=== PATIENT | female | born 1945 | race Caucasian/White ===

== ENCOUNTER 2019-04-11 10:17 | Emergency (ER) | payer MEDICARE, OTHER, MEDICAID ==
[~2019-04-11] VITALS: Ht 170.2 cm; Wt 138.6 kg
[~2019-04-11 10:17] MED LIST: DOCU100C40 PO; LEVO150T8 PO; MORP-92 PO; OLAN5TAB26 PO; VENL37.55 PO
[2019-04-11 10:25] VITALS: BP 129/67
[2019-04-11] MEDS ORDERED: HYDR-4353 PO (11:43)
== END 2019-04-11 11:57 | disposition home or self-care (01) ==
LOC: ER 10:18
DX: S81.811A Laceration without foreign body, right lower leg, initial encounter (principal); M53.3 Sacrococcygeal disorders, not elsewhere classified; M54.5 Low back pain; E11.9 Type 2 diabetes mellitus without complications; G89.29 Other chronic pain; Z79.899 Other long term (current) drug therapy; Z98.890 Other specified postprocedural states; Z86.73 Personal history of transient ischemic attack (TIA), and cerebral infarction without residual deficits; W01.0XXA Fall on same level from slipping, tripping and stumbling without subsequent striking against object, initial encounter; Y93.89 Activity, other specified; Y92.89 Other specified places as the place of occurrence of the external cause; Y99.8 Other external cause status
CPT/HCPCS: 72100; 99283

== ENCOUNTER 2019-04-15 18:54 | Emergency (ER) | payer MEDICARE, OTHER, MEDICAID ==
[~2019-04-15] VITALS: Ht 170.2 cm; Wt 107.8 kg
[~2019-04-15 18:54] MED LIST changes: +HYDR-4353 PO
[2019-04-15] MEDS ORDERED: ondansetron 4mg rapidly disintigrating tab PO ONE (20:35)
[2019-04-15] MEDS ORDERED: HYDROcodone/acetaminophen 5mg/325mg tablet PO ONE (20:35)
[2019-04-15] MEDS ORDERED: HYDR-4383 PO (21:27)
[2019-04-15 21:34] VITALS: BP 133/70
== END 2019-04-15 21:35 | disposition home or self-care (01) ==
LOC: ER 18:55
DX: R07.81 Pleurodynia (principal); E11.9 Type 2 diabetes mellitus without complications; G89.29 Other chronic pain; Z86.73 Personal history of transient ischemic attack (TIA), and cerebral infarction without residual deficits; Z98.890 Other specified postprocedural states; Z79.899 Other long term (current) drug therapy; W18.30XA Fall on same level, unspecified, initial encounter; Y93.89 Activity, other specified; Y92.89 Other specified places as the place of occurrence of the external cause; Y99.9 Unspecified external cause status
CPT/HCPCS: 71046; 99283

== ENCOUNTER 2019-09-02 14:04 | Observation (INO) | payer MEDICARE, OTHER, MEDICAID ==
[~2019-09-02] VITALS: Ht 170.2 cm; Wt 131.8 kg
[~2019-09-02 14:04] MED LIST changes: -HYDR-4353 PO; +HYDR-4383 PO
--- NOTE | 2019-09-02 14:19 | NUR ---
To CT via [facility].
[2019-09-02 14:49] LABS: BASOPHILS % (AUTO) 0.7 % (0-1); EOSINOPHILS # (AUTO) 0.2 X10'3 (0-0.9); EOSINOPHILS % (AUTO) 4.4 % (0-6); HEMATOCRIT 37.1 % (35.0-45.0); HEMOGLOBIN 12.3 g/dl (12.0-16.0); LYMPHOCYTES # (AUTO) 1.2 X10'3 (1.1-4.8); LYMPHOCYTES % (AUTO) 22.2 % (21-51); MEAN CORPUSCULAR HEMOGLOBIN 32.1 PG (27.0-31.0); MEAN CORPUSCULAR HGB CONC 33.3 g/dL (33.0-36.5); MEAN CORPUSCULAR VOLUME 96.6 FL (78-98); MEAN PLATELET VOLUME 9.1 FL (7.4-10.4); MONOCYTES # (AUTO) 0.8 X10'3 (0-0.9); MONOCYTES % (AUTO) 14.4 % (2-12); NEUTROPHILS # (AUTO) 3.1 X10'3 (1.8-7.7); NEUTROPHILS % (AUTO) 58.3 % (42-75); PLATELET COUNT 120 X10'3 (140-440); RED BLOOD COUNT 3.84 X10'6 (4.20-5.60); RED CELL DISTRIBUTION WIDTH 16.4 % (11.5-14.5); WHITE BLOOD COUNT 5.3 X10'3 (4.5-11.0)
--- NOTE | 2019-09-02 14:55 | NUR ---
STROKE CODE CANCELLED PER DR. BHARDWAJ.
[2019-09-02 15:01] LABS: PARTIAL THROMBOPLASTIN TIME 27 SECONDS (22-32)
[2019-09-02 15:04] LABS: ALANINE AMINOTRANSFERASE 42 U/L (12-78); ALBUMIN 3.4 G/DL (3.4-5.0); ALBUMIN/GLOBULIN RATIO 1.2 (1.1-1.5); ALKALINE PHOSPHATASE 198 IU/L (46-116); ANION GAP 7 (8-16); ASPARTATE AMINO TRANSFERASE 65 U/L (10-37); BILIRUBIN,TOTAL 1.2 MG/DL (0.1-1.0); BLOOD UREA NITROGEN 14 MG/DL (7-18); BUN/CREATININE RATIO 17.9 (6.6-38.0); CALCIUM 9.6 MG/DL (8.5-10.1); CHLORIDE 110 MMOL/L (99-107); CREATININE 0.78 MG/DL (0.40-0.90); GLUCOSE 200 MG/DL (70-104); POTASSIUM 3.3 MMOL/L (3.5-5.1); SODIUM 144 MMOL/L (135-145); TOTAL CARBON DIOXIDE 26.7 MMOL/L (24-32); TOTAL PROTEIN 6.2 G/DL (6.4-8.2); eGFR 73 ML/MIN
[2019-09-02] MEDS ORDERED: lactulose 20gm/30ml cup PO ONE (15:10)
[2019-09-02 15:28] LABS: CLARITY,URINE CLOUDY (Clear); GLUCOSE, URINE NEGATIVE (Neg); KETONES,URINE NEGATIVE (Neg); LEUKOCYTE ESTERASE ,URINE SMALL (Neg); NITRITES, URINE NEGATIVE (Neg); OCCULT BLOOD,URINE LARGE (Neg); PH,URINE 5.5 (4.8-8.0); PROTEIN,URINE 100 mg/dl (Neg)
[2019-09-02 15:29] LABS: COLOR,URINE DARK YELLOW (Yellow); UA COLLECTION TYPE CLN CATCH MIDSTREAM
[2019-09-02 15:37] LABS: BACTERIA,URINE 1+ /HPF (Neg); MUCUS STRANDS NONE SEEN /LPF (Neg); RBC,URINE TNTC /HPF (0-2); SQUAMOUS EPITHELIAL CELL,UR MODERATE /LPF (FEW)
[2019-09-02] MEDS ORDERED: CefTRIAXone/D5W-Rocephin 1gm 50 ML IV ONE (15:40)
[2019-09-02 15:42] LABS: URINE AMPHETAMINE SCREEN NEGATIVE (Neg); URINE BARBITUATE SCREEN NEGATIVE (Neg); URINE BENZODIAZEPINES SCREEN NEGATIVE (Neg); URINE CANNABINOID SCREEN POSITIVE (Neg); URINE COCAINE SCREEN NEGATIVE (Neg); URINE METHADONE SCREEN NEGATIVE (Neg); URINE OPIATE SCREEN POSITIVE (Neg); URINE PHENCYCLIDINE SCREEN NEGATIVE (Neg)
[2019-09-02] MEDS ORDERED: OXYB-58 PO (15:59)
[2019-09-02] MEDS ORDERED: PREVCR TD (15:59)
[2019-09-02] MEDS ORDERED: METF-950 PO (15:59)
[2019-09-02] MEDS ORDERED: vitamin d PO (16:00)
[2019-09-02] MEDS ORDERED: HYDROcodone/acetaminophen 5mg/325mg tablet PO PRN (16:25)
[2019-09-02] MEDS ORDERED: potassium Cl 20 mEq SR tablet PO PRN (16:25)
[2019-09-02] MEDS ORDERED: magnesium 2GM in 50ml NS 50 ML IV PRN (16:25)
[2019-09-02] MEDS ORDERED: morphine 2 MG/ML inj. syringe IV PRN (16:25)
[2019-09-02] MEDS ORDERED: magnesium 4gm in 100ml NS 100 ML IV PRN (16:25)
[2019-09-02] MEDS ORDERED: ondansetron/PF 4mg/2ml inj IV PRN (16:25)
[2019-09-02] MEDS ORDERED: magnesium Cl slow-release 64mg tablet PO PRN (16:25)
[2019-09-02] MEDS ORDERED: mag hydrox/Alum hydrox/simeth 30ml oral suspension PO PRN (16:25)
[2019-09-02] MEDS ORDERED: acetaminophen 325mg tablet PO PRN ×2 (16:25)
[2019-09-02] MEDS ORDERED: potassium CL 10mEq/100ml bag 100 ML IV PRN ×2 (16:25)
[2019-09-02] MEDS ORDERED: dextrose ORAL solution 15 GM/59 ML bottle PO PRN ×2 (16:35)
[2019-09-02] MEDS ORDERED: MESSAGE TO PHARMACY PO ONE (16:35)
[2019-09-02] MEDS ORDERED: insulin Lispro (HumaLOG) vial - multi-dose SQ SCH (16:35)
[2019-09-02] MEDS ORDERED: glucagon, human recombinant 1mg kit SUBCUT PRN (16:35)
[2019-09-02] MEDS ORDERED: dextrose 50%-water 50ml dispensing syringe IV PRN ×2 (16:35)
[2019-09-02] MEDS ORDERED: estrogens, conjug. vaginal cream 45gm tube VG SCH (16:35)
--- NOTE | 2019-09-02 17:36 | NUR ---
Attempted report to receiving nurse x 1. Surgical retail sales clerk reports RN will call back.
--- NOTE | 2019-09-02 17:45 | NUR ---
Report received from ED RNQuin.
[2019-09-02 18:00] VITALS: BP 107/43
--- NOTE | 2019-09-02 18:00 | NUR ---
Pt arrived from ED
--- NOTE | 2019-09-02 18:50 | NUR ---
Problems reprioritized. Patient report given, questions answered & plan of care reviewed with FRED Langston.
[2019-09-02] MEDS: normal saline 1000ml 1,000 ML IV SCH (19:23)
[2019-09-02] MEDS: nystatin 15 GM powder TP SCH (19:26)
[2019-09-02] MEDS: heparin, porcine 5000 units/ml vial SQ SCH (19:27)
[2019-09-02] MEDS: potassium Cl 20 mEq SR tablet PO PRN (19:27)
[2019-09-02] MEDS: docusate sod 100mg capsule PO SCH (19:27)
[2019-09-02] MEDS ORDERED: pneumococcal 23-VAL P-sac vacc 25 mcg/0.5ml vial IMVAC ONE (19:30)
[2019-09-02] MEDS: K and/or MAG REPLACEMENT MC SCH (19:38)
[2019-09-02 20:00] VITALS: BP_SYST 107; BP_SYST 138; BP_SYST 142; BP_DIAS 43; BP_DIAS 70; BP_DIAS 72
--- NOTE | 2019-09-02 20:00 | NUR ---
PATIENT REFUSED Addendum: 09/02/19 at 2324 by Ivis Browning RN Amended: Links added.
[2019-09-02] MEDS ORDERED: temazepam 15mg capsule PO PRN (21:00)
[2019-09-02] MEDS ORDERED: diatr meglu/diatrizoate 30ml oral sol.-(3 dose) bottle PO ONE (21:00)
[2019-09-02] MEDS ORDERED: insulin glargine (Lantus) pen - multi-dose SQ SCH (21:00)
--- NOTE | 2019-09-02 22:37 | NUR ---
PATIENT REFUSED TO DO ORTHOSTATICS Addendum: 09/02/19 at 2238 by Ivis Browning RN Amended: Links added.
--- NOTE | 2019-09-02 22:39 | NUR ---
VITALS DONE ON DAY SHIFT Addendum: 09/02/19 at 2239 by Ivis Browning RN Amended: Links added.
--- NOTE | 2019-09-02 23:22 | NUR ---
PATIENT REFUSED TO DO ORTHOSTATICS Addendum: 09/02/19 at 2323 by Ivis Browning RN Amended: Links added.
--- NOTE | 2019-09-03 00:11 | NUR ---
PATIENT REFUSED Addendum: 09/03/19 at 0012 by Ivis Browning RN Amended: Links added.
[2019-09-03 00:36] VITALS: BP 109/63
[2019-09-03] MEDS: potassium Cl 20 mEq SR tablet PO PRN (00:59)
[2019-09-03] MEDS: normal saline 1000ml 1,000 ML IV SCH (01:58)
[2019-09-03 05:10] LABS: EOSINOPHILS # (AUTO) 0.3 X10'3 (0-0.9); EOSINOPHILS % (AUTO) 5.5 % (0-6); HEMATOCRIT 36.7 % (35.0-45.0); HEMOGLOBIN 12.2 g/dl (12.0-16.0); LYMPHOCYTES # (AUTO) 1.3 X10'3 (1.1-4.8); LYMPHOCYTES % (AUTO) 28.1 % (21-51); MEAN CORPUSCULAR HEMOGLOBIN 32.2 PG (27.0-31.0); MEAN CORPUSCULAR HGB CONC 33.3 g/dL (33.0-36.5); MEAN CORPUSCULAR VOLUME 96.6 FL (78-98); MEAN PLATELET VOLUME 9.2 FL (7.4-10.4); MONOCYTES # (AUTO) 0.6 X10'3 (0-0.9); MONOCYTES % (AUTO) 11.9 % (2-12); NEUTROPHILS # (AUTO) 2.5 X10'3 (1.8-7.7); NEUTROPHILS % (AUTO) 53.5 % (42-75); PLATELET COUNT 112 X10'3 (140-440); RED BLOOD COUNT 3.79 X10'6 (4.20-5.60); RED CELL DISTRIBUTION WIDTH 16.5 % (11.5-14.5); WHITE BLOOD COUNT 4.7 X10'3 (4.5-11.0)
[2019-09-03 05:27] LABS: ALANINE AMINOTRANSFERASE 39 U/L (12-78); ALBUMIN 3.1 G/DL (3.4-5.0); ALBUMIN/GLOBULIN RATIO 1.1 (1.1-1.5); ALKALINE PHOSPHATASE 170 IU/L (46-116); ANION GAP 9 (8-16); ASPARTATE AMINO TRANSFERASE 57 U/L (10-37); BILIRUBIN,TOTAL 1.1 MG/DL (0.1-1.0); BLOOD UREA NITROGEN 14 MG/DL (7-18); BUN/CREATININE RATIO 18.9 (6.6-38.0); CALCIUM 9.1 MG/DL (8.5-10.1); CHLORIDE 111 MMOL/L (99-107); CREATININE 0.74 MG/DL (0.40-0.90); GLUCOSE 134 MG/DL (70-104); MAGNESIUM 1.8 MG/DL (1.5-2.4); POTASSIUM 3.6 MMOL/L (3.5-5.1); SODIUM 146 MMOL/L (135-145); TOTAL CARBON DIOXIDE 26.5 MMOL/L (24-32); TOTAL PROTEIN 5.9 G/DL (6.4-8.2); eGFR 77 ML/MIN
--- NOTE | 2019-09-03 06:30 | NUR ---
Problems reprioritized. Patient report given, questions answered & plan of care reviewed with Musad RN.Patient is sitting up watching TV.
[2019-09-03 07:00] VITALS: BP 111/62
[2019-09-03] MEDS: heparin, porcine 5000 units/ml vial SQ SCH (08:00)
[2019-09-03] MEDS ORDERED: CefTRIAXone 2gm/D5W 50ml 50 ML IV SCH (08:00)
[2019-09-03] MEDS: K and/or MAG REPLACEMENT MC SCH (08:00)
[2019-09-03] MEDS ORDERED: levoTHYROXINE 75mcg tablet PO SCH (08:00)
[2019-09-03] MEDS: docusate sod 100mg capsule PO SCH (08:08)
[2019-09-03] MEDS: nystatin 15 GM powder TP SCH (08:09)
--- NOTE | 2019-09-03 10:53 | NUR ---
DM consult: Pt with T2DM, current A1c is 8.0%. Pt currently documented as A/O x2, DM education not appropriate at this time. Will continue to follow and provide DM education once pt alert and oriented. Addendum: 09/03/19 at [address] Amended: Links added.
--- NOTE | 2019-09-03 12:10 | NUR ---
Patient alert, oriented, and appropriate for discharge. Patient verbalized understanding of discharge instructions and will follow up with primary care provider. Patient left with all belongings into a private vehicle into the care of sister, "Lubna." Patient did not receive any new medications. Patient IV's removed. Patient tele removed and cleaned. Patient escorted down by a member of the staff.
--- NOTE | 2019-09-05 13:06 | NUR ---
Case Management DC follow up: spoke to pt via telephone: reports "feeling not so hot today, but okay, I don't like the rain": status post-confusion, UTI: Denies acute/persistent CP, emergent general pain, SOB, resp distress, NV, vertigo, syncope, BROWN, general/concerning bruising, bleeding, fever, diaphoreses, confusion at this time. Verbalizes understanding of s/s that would warrant 9-11/ER visit for further evaluation/lives w/granddaughter. Verbalizes understanding of current and/or new Rx; taking as ordered, no ase noted r/t polypharmacy. Uses 4ww to ambulate. Acknowledges need to schedule/keep follow up appts w/PCP & states is filling out paperwork to change PCP to Dr Ware. Pt agrees that she will contact current PCP to inquire about HHS that she was receiving, but has not seen them in a while and cannot remember who the co is. Stated she will ask who PCP referred. All questions/concerns addressed and answered at DC; Verbalizes understanding of post status after-care compliance. No further questions at this time.
== END 2019-09-03 12:17 | disposition home or self-care (01) ==
LOC: ER 14:05 → ED HOLD 16:24 → SUR 3N 18:05
PROVIDERS: ADMIT Internal Medicine; ATTEND Internal Medicine
DX: F03.90 Unspecified dementia, unspecified severity, without behavioral disturbance, psychotic disturbance, mood disturbance, and anxiety (principal); R41.0 Disorientation, unspecified; G93.41 Metabolic encephalopathy; N39.0 Urinary tract infection, site not specified; M17.11 Unilateral primary osteoarthritis, right knee; E11.9 Type 2 diabetes mellitus without complications; F32.9 Major depressive disorder, single episode, unspecified; D69.6 Thrombocytopenia, unspecified; R71.8 Other abnormality of red blood cells; R74.0 Nonspecific elevation of levels of transaminase and lactic acid dehydrogenase [LDH]; D46.9 Myelodysplastic syndrome, unspecified; F41.9 Anxiety disorder, unspecified; G89.29 Other chronic pain; M54.5 Low back pain; E03.9 Hypothyroidism, unspecified; G43.909 Migraine, unspecified, not intractable, without status migrainosus; E66.01 Morbid (severe) obesity due to excess calories; F12.10 Cannabis abuse, uncomplicated; Z86.73 Personal history of transient ischemic attack (TIA), and cerebral infarction without residual deficits; Z79.84 Long term (current) use of oral hypoglycemic drugs; Z79.899 Other long term (current) drug therapy; Z91.013 Allergy to seafood; Z91.010 Allergy to peanuts; Z23 Encounter for immunization
CPT/HCPCS: 36415; 70450; 71045; 73560; 80053; 80305; 80320; 81001; 82140; 82948; 83036; 83605; 83735; 85025; 85610; 85730; 87040; 87081; 87088; 90732; 96361; 96365; 96366; 96372; 97161; 97530; 99285; G0009; G0378; J0696; J1644; J1815; J7030; Q9963

== ENCOUNTER 2019-10-25 13:46 | Emergency (ER) | payer MEDICARE, OTHER, MEDICAID ==
[~2019-10-25] VITALS: Ht 167.6 cm; Wt 95.5 kg
[~2019-10-25 13:46] MED LIST changes: -DOCU100C40 PO; -HYDR-4383 PO; +METF-950 PO; -MORP-92 PO; -OLAN5TAB26 PO; +OXYB-58 PO; +PREVCR TD; -VENL37.55 PO; +vitamin d PO
--- NOTE | 2019-10-25 13:48 | NUR ---
PT REPORTS NUMBNESS OF LEFT ARM AND MOUTH THAT OCCURRED 4 DAYS AGO AND THEN AGAIN APPROX NOON. PT CALLED PCP AND REFERED TO COME IN. PT WITHOUT ARM DRIFT, AND STRENGTH IS EQUAL, NO SLURRED SPEECH OR FACIAL DROOP. PT REPORTS NUMBNESS HAS RESOLVED. SPOKE WITH DR. GÓMEZ AND REPORTED CO, PT TO BE SEEN BY MD AND NOT TO HAVE STROKE ALERT ORDERS PLACED PER VO .
[2019-10-25 15:52] LABS: BASOPHILS % (AUTO) 0.7 % (0-1); EOSINOPHILS # (AUTO) 0.3 X10'3 (0-0.9); LYMPHOCYTES # (AUTO) 1.1 X10'3 (1.1-4.8); NEUTROPHILS # (AUTO) 3.3 X10'3 (1.8-7.7); PLATELET COUNT 101 X10'3 (140-440); RED CELL DISTRIBUTION WIDTH 14.4 % (11.5-14.5)
[2019-10-25 15:54] LABS: EOSINOPHILS % (AUTO) 5.1 % (0-6); HEMATOCRIT 39.1 % (35.0-45.0); LYMPHOCYTES % (AUTO) 21.4 % (21-51); MEAN CORPUSCULAR HGB CONC 33.1 g/dL (33.0-36.5); MEAN CORPUSCULAR VOLUME 96.7 FL (78-98); MEAN PLATELET VOLUME 9.4 FL (7.4-10.4); MONOCYTES # (AUTO) 0.6 X10'3 (0-0.9); MONOCYTES % (AUTO) 10.4 % (2-12); NEUTROPHILS % (AUTO) 62.4 % (42-75); RED BLOOD COUNT 4.05 X10'6 (4.20-5.60); WHITE BLOOD COUNT 5.4 X10'3 (4.5-11.0)
[2019-10-25 15:58] LABS: PARTIAL THROMBOPLASTIN TIME 28 SECONDS (22-32)
[2019-10-25 15:59] LABS: ALANINE AMINOTRANSFERASE 34 U/L (12-78); ALBUMIN 3.4 G/DL (3.4-5.0); ALBUMIN/GLOBULIN RATIO 1.2 (1.1-1.5); ALKALINE PHOSPHATASE 180 IU/L (46-116); ANION GAP 8 (8-16); ASPARTATE AMINO TRANSFERASE 29 U/L (10-37); BILIRUBIN,TOTAL 0.8 MG/DL (0.1-1.0); BLOOD UREA NITROGEN 12 MG/DL (7-18); BUN/CREATININE RATIO 14.6 (6.6-38.0); CALCIUM 9.5 MG/DL (8.5-10.1); CHLORIDE 110 MMOL/L (99-107); CREATININE 0.82 MG/DL (0.40-0.90); GLUCOSE 175 MG/DL (70-104); POTASSIUM 3.7 MMOL/L (3.5-5.1); SODIUM 146 MMOL/L (135-145); TOTAL CARBON DIOXIDE 28.2 MMOL/L (24-32); TOTAL PROTEIN 6.3 G/DL (6.4-8.2); eGFR 69 ML/MIN
[2019-10-25 16:27] VITALS: BP 110/74
== END 2019-10-25 16:27 | disposition home or self-care (01) ==
LOC: ER 13:48
DX: R20.2 Paresthesia of skin (principal); R47.81 Slurred speech; E11.9 Type 2 diabetes mellitus without complications; G89.29 Other chronic pain; Z86.73 Personal history of transient ischemic attack (TIA), and cerebral infarction without residual deficits; Z98.890 Other specified postprocedural states; Z91.018 Allergy to other foods; Z91.013 Allergy to seafood; Z79.899 Other long term (current) drug therapy
CPT/HCPCS: 36415; 70450; 71045; 80053; 82948; 85025; 85610; 85730; 93005; 99285

== ENCOUNTER 2020-04-02 16:11 | Emergency (ER) | payer MEDICARE, OTHER, MEDICAID ==
[~2020-04-02] VITALS: Ht 172.7 cm; Wt 122.7 kg
[2020-04-02] MEDS ORDERED: ondansetron/PF 4mg/2ml inj IV ONE (16:40)
[2020-04-02] MEDS ORDERED: normal saline 1000ML IV soln IVB ONE (16:40)
[2020-04-02] MEDS ORDERED: morphine 4 MG/ML inj SYRINge IV PRN (16:40)
[2020-04-02 17:09] LABS: CLARITY,URINE TURBID (Clear); COLOR,URINE YELLOW (Yellow); GLUCOSE, URINE NEGATIVE (Neg); KETONES,URINE 15 mg/dl (Neg); LEUKOCYTE ESTERASE ,URINE SMALL (Neg); NITRITES, URINE NEGATIVE (Neg); OCCULT BLOOD,URINE LARGE (Neg); PROTEIN,URINE 100 mg/dl (Neg)
[2020-04-02 17:11] LABS: UA COLLECTION TYPE OTHER
[2020-04-02 17:14] LABS: BASOPHILS % (AUTO) 0.4 % (0-1); EOSINOPHILS % (AUTO) 0.1 % (0-6); HEMATOCRIT 29.4 % (35.0-45.0); HEMOGLOBIN 9.9 g/dl (12.0-16.0); LYMPHOCYTES # (AUTO) 1.4 X10'3 (1.1-4.8); LYMPHOCYTES % (AUTO) 13.9 % (21-51); MEAN CORPUSCULAR HEMOGLOBIN 33.6 PG (27.0-31.0); MEAN CORPUSCULAR HGB CONC 33.9 g/dL (33.0-36.5); MEAN CORPUSCULAR VOLUME 99.3 FL (78-98); MEAN PLATELET VOLUME 8.4 FL (7.4-10.4); NEUTROPHILS # (AUTO) 7.9 X10'3 (1.8-7.7); NEUTROPHILS % (AUTO) 75.6 % (42-75); PLATELET COUNT 197 X10'3 (140-440); RED BLOOD COUNT 2.96 X10'6 (4.20-5.60); RED CELL DISTRIBUTION WIDTH 15.6 % (11.5-14.5); WHITE BLOOD COUNT 10.4 X10'3 (4.5-11.0)
[2020-04-02 17:19] LABS: MUCUS STRANDS MANY /LPF (Neg); SQUAMOUS EPITHELIAL CELL,UR MANY /LPF (FEW); TRANSITIONAL EPI CELLS,URINE MODERATE /HPF
[2020-04-02 17:20] LABS: HYALINE CASTS 0-3 /LPF (NEGATIVE)
[2020-04-02 17:21] LABS: RBC,URINE TNTC /HPF (0-2)
[2020-04-02 17:22] LABS: BACTERIA,URINE 1+ /HPF (Neg)
[2020-04-02 17:32] LABS: ALANINE AMINOTRANSFERASE 29 U/L (12-78); ALBUMIN 3.1 G/DL (3.4-5.0); ALBUMIN/GLOBULIN RATIO 1.1 (1.1-1.5); ALKALINE PHOSPHATASE 100 IU/L (46-116); ANION GAP 9 (8-16); ASPARTATE AMINO TRANSFERASE 24 U/L (10-37); BILIRUBIN,TOTAL 1.2 MG/DL (0.1-1.0); BLOOD UREA NITROGEN 30 MG/DL (7-18); BUN/CREATININE RATIO 37.5 (6.6-38.0); CALCIUM 9.4 MG/DL (8.5-10.1); CHLORIDE 107 MMOL/L (99-107); GLUCOSE 158 MG/DL (70-104); LIPASE < 50 U/L (73-393); POTASSIUM 3.4 MMOL/L (3.5-5.1); SODIUM 142 MMOL/L (135-145); TOTAL CARBON DIOXIDE 26.4 MMOL/L (24-32); eGFR 71 ML/MIN
[2020-04-02] MEDS ORDERED: ONDA4TAB6 PO (17:54)
[2020-04-02] MEDS ORDERED: CEPH250T PO (17:54)
== END 2020-04-02 19:19 | disposition home or self-care (01) ==
LOC: ER 16:15
DX: N39.0 Urinary tract infection, site not specified (principal); K52.9 Noninfective gastroenteritis and colitis, unspecified; D64.9 Anemia, unspecified; E11.9 Type 2 diabetes mellitus without complications; G89.29 Other chronic pain; Z91.010 Allergy to peanuts; Z91.013 Allergy to seafood; Z79.2 Long term (current) use of antibiotics; Z79.899 Other long term (current) drug therapy
CPT/HCPCS: 36415; 71045; 74176; 80053; 81001; 83690; 85025; 96361; 96374; 99285; J2405; J7030; 93005